=== PATIENT | female | born 1965 | race Caucasian/White ===

== ENCOUNTER 2017-12-04 15:06 | Emergency (ER) | payer OTHER ==
[2017-12-04 15:29] VITALS: TEMP 98
[2017-12-04] MEDS ORDERED: NITROGLYCERIN 0.4 MG TAB SL PRN (15:35)
[2017-12-04] MEDS ORDERED: ASPIRIN 81 MG CHEWABLE CTB PO STA (15:35)
[2017-12-04] MEDS ORDERED: SODIUM CHLORIDE 0.9% FLUSH 10 ML SOL IV PRN (15:35)
[2017-12-04] MEDS ORDERED: NITROGLYCERIN 0.4 MG TAB SL ONE (15:37)
[2017-12-04] MEDS ORDERED: ASPIRIN 81 MG CHEWABLE CTB ONE (15:37)
[2017-12-04 16:09] LABS: BASOPHILS % (AUTO) 0 % (0-3); EOSINOPHILS % (AUTO) 1 % (0-9); HEMATOCRIT 42 % (35-47); HEMOGLOBIN 14.3 gm/dl (12.0-15.5); LYMPHOCYTES % (AUTO) 39.1 % (10-50); MEAN CORPUSCULAR HEMOGLOBIN 30.8 pg (27.0-32.0); MEAN CORPUSCULAR HGB CONC 34.3 gm/dl (32.0-36.0); MEAN CORPUSCULAR VOLUME 90 fL (81-99); MONOCYTES % (AUTO) 4.8 % (0-12); NEUTROPHILS % (AUTO) 54.5 % (37-80)
[2017-12-04 16:21] LABS: INR 0.94 (0.86-1.12)
[2017-12-04 16:26] LABS: BLOOD UREA NITROGEN 16 mg/dl (7-18); CALCIUM 9.6 mg/dl (8.5-10.1); CARBON DIOXIDE 30.8 mEq/L (21-32); CHLORIDE 102 mMol/L (98-107); CREATINE KINASE 68 U/L (26-192); CREATININE 0.93 mg/dl (0.60-1.00); GLOM FILT RATE 63 mL/min (>60); GLUCOSE 97 mg/dl (74-106); POTASSIUM 3.7 mMol/L (3.5-5.1); SODIUM 141 mMol/L (136-145); TROP I < 0.017 ng/ml (0.000-0.056)
[2017-12-04 17:30] VITALS: BP 118/80; PULSE 60; RESP 17; O2SAT 98
== END 2017-12-04 17:20 | disposition home or self-care (01) | DRG 313 ==
LOC: ED 15:06
DX: R07.89 Other chest pain (principal)
CPT/HCPCS: 36415; 71046; 80048; 82550; 84484; 85025; 85610; 85730; 93005; 99283; 99284; A9270-GY